=== PATIENT | male | born 1975 | race Caucasian/White ===

== ENCOUNTER 2017-07-24 12:40 | Outpatient (CLI) | payer OTHER | END 2017-07-24 12:58 | disposition home or self-care (01) | LOC: LAB 12:40 | DX: R50.9 Fever, unspecified (principal); J11.1 Influenza due to unidentified influenza virus with other respiratory manifestations ==

== ENCOUNTER → 2017-07-24 | Outpatient (CLI) | payer OTHER ==
[~2017-07-24] VITALS: Ht 152.4 cm; Wt 97.5 kg
[~2017-07-24] MED LIST: CATAFLAM 50 MG; CELEBREX100 MG PO; DICY20TA PO; OSEL75CA PO; PREDNISONE10 MG/DOSE PO; PREVACID30 MG PO; SKELAXIN800 MG PO; TRAMADOL HCL-AP1 TAB PO
== END | disposition home or self-care (01) ==
LOC: PPHC 11:28
DX: R50.9 Fever, unspecified (principal); R09.81 Nasal congestion; Z01.89 Encounter for other specified special examinations